=== PATIENT | male | born 1965 | race Two or more races ===

== ENCOUNTER 2017-10-15 09:52 | Inpatient (IN) | payer OTHER ==
[~2017-10-15] VITALS: Ht 167.6 cm; Wt 92.9 kg
[2017-10-15] MEDS ORDERED: SODIUM CHLORIDE 0.9% 500 ML IV ONE (10:25)
[2017-10-15] MEDS ORDERED: CLINDAMYCIN 600MG IV 50 ML IV ONE (10:30)
[2017-10-15] MEDS ORDERED: KETOROLAC TROMETH 30 MG/ML 1ML VIAL IV ONE (10:30)
[2017-10-15 11:05] LABS: Basophils # (auto) 0 uL; Basophils % (auto) 0.6 % (0.0-2.0); Eosinophils # (auto) 0.1 uL; Eosinophils % (auto) 0.8 % (0.0-7.0); Hematocrit 47.8 % (41.0-53.0); Hemoglobin 16.9 g/dL (13.5-17.5); Lymphocytes # (auto) 1.9 uL; Lymphocytes % (auto) 23.9 % (10.0-50.0); Mean Corpuscular Hemoglobin 30.5 pg (28.0-32.0); Mean Corpuscular Hgb Conc. 35.3 g/dL (32.0-36.0); Mean Corpuscular Volume 86.3 fL (80.0-100.0); Monocytes # (auto) 0.6 uL; Monocytes % (auto) 7.7 % (0.0-12.0); Neutrophils # (auto) 5.3 uL; Nucleated Red Blood Cells % 0.1 %; Platelet Count (auto) 233 10^3/uL (140-450); Red Blood Cells 5.53 10^6/uL (4.5-5.90); Red Cell Distribution Width 12.9 % (11.8-14.3)
[2017-10-15 11:38] LABS: Albumin 3.5 g/dL (3.4-5.0); BUN/Creatinine Ratio 9.9; Calcium 8.8 mg/dL (8.5-10.1); Magnesium 2.3 mg/dL (1.6-2.6); Potassium 4.7 mmol/L (3.5-5.1); Total Protein 8.4 g/dL (6.4-8.2)
[2017-10-15] MEDS ORDERED: SILVER SULFADIAZINE 1 % TOPICAL CREAM 50GM TOP ONE (12:00)
[2017-10-15] MEDS ORDERED: LIDOCAINE 2% (LOCAL ANESTH.) PF 5ml SDV ONE ×2 (12:08→12:18)
[2017-10-15] MEDS ORDERED: LIDOCAINE 1% HCL (LOCAL ANESTH.) INJ 20ML MDV ID ONE (12:15)
[2017-10-15] MEDS: HYDROcodone-ACET 10/325MG TAB PO PRN ×3 (12:31→20:02)
[2017-10-15] MEDS ORDERED: LIDOCAINE 2%HCL (LOCAL ANESTH.) INJ 10ml MDV IJ ONE ×2 (12:45)
[2017-10-15] MEDS ORDERED: NITROGLYCERIN 0.4 MG SL TAB SL PRN (13:00)
[2017-10-15] MEDS ORDERED: DEXTROSE (50%) 50ML SYRG IV PRN (13:00)
[2017-10-15] MEDS ORDERED: MORPHINE SULF INJ 2 MG/ML SYRINGE 1ML IV PRN (13:00)
[2017-10-15] MEDS: DAKINS QUARTER STR 0.125% (NaHypochlorite) 473 ML TOPICAL SOL TOP SCH ×2 (13:23→22:00)
[2017-10-15] MEDS: VANCOMYCIN 1GM/250ML 250 ML IV SCH (14:12)
[2017-10-15] MEDS: ACCU-CHEK COMFORT CURVE STRIP VI SCH ×2 (17:21→22:00)
[2017-10-15] MEDS: InsuLIN REG 1unit/0.01ml Soln (100units/ml) SC SCH ×2 (17:49→22:00)
[2017-10-15 19:58] VITALS: BP 142/86
[2017-10-15 22:00] VITALS: BP_SYST 127; BP_DIAS 80; BP_DIAS 84
[2017-10-16] MEDS: VANCOMYCIN 1GM/250ML 250 ML IV SCH ×2 (02:30→16:19)
[2017-10-16 05:39] VITALS: BP 110/70
[2017-10-16] MEDS: ACCU-CHEK COMFORT CURVE STRIP VI SCH ×4 (07:07→21:28)
[2017-10-16] MEDS: InsuLIN REG 1unit/0.01ml Soln (100units/ml) SC SCH ×4 (07:07→21:29)
[2017-10-16 08:48] VITALS: BP 126/80
[2017-10-16] MEDS: HYDROcodone-ACET 10/325MG TAB PO PRN ×3 (09:50→19:47)
[2017-10-16] MEDS: DAKINS QUARTER STR 0.125% (NaHypochlorite) 473 ML TOPICAL SOL TOP SCH ×2 (12:41→21:29)
[2017-10-16 13:00] VITALS: BP 122/77
[2017-10-16 17:00] VITALS: BP 129/84
[2017-10-16 22:00] VITALS: BP 132/81
[2017-10-17] MEDS ORDERED: INSREG3 IV (00:08)
[2017-10-17] MEDS: VANCOMYCIN 1GM/250ML 250 ML IV SCH ×2 (01:39→17:17)
[2017-10-17] MEDS: HYDROcodone-ACET 10/325MG TAB PO PRN ×3 (03:50→23:47)
[2017-10-17 05:00] VITALS: BP 132/74
[2017-10-17] MEDS: InsuLIN REG 1unit/0.01ml Soln (100units/ml) SC SCH ×4 (06:26→22:03)
[2017-10-17] MEDS: ACCU-CHEK COMFORT CURVE STRIP VI SCH ×4 (06:26→22:03)
[2017-10-17 08:30] VITALS: BP 107/73
[2017-10-17] MEDS: DAKINS QUARTER STR 0.125% (NaHypochlorite) 473 ML TOPICAL SOL TOP SCH ×2 (10:06→22:03)
[2017-10-17 13:03] VITALS: BP 115/76
[2017-10-17 16:50] VITALS: BP 117/75
[2017-10-17 22:02] VITALS: BP 132/90
[2017-10-18] MEDS: VANCOMYCIN 1GM/250ML 250 ML IV SCH (04:23)
[2017-10-18 05:45] VITALS: BP 116/73
[2017-10-18 07:40] LABS: Basophils # (auto) 0.1 uL; Basophils % (auto) 0.8 % (0.0-2.0); Eosinophils # (auto) 0.2 uL; Eosinophils % (auto) 2.4 % (0.0-7.0); Hematocrit 45.7 % (41.0-53.0); Hemoglobin 15.7 g/dL (13.5-17.5); Lymphocytes # (auto) 2.5 uL; Lymphocytes % (auto) 27.6 % (10.0-50.0); Mean Corpuscular Hemoglobin 29.8 pg (28.0-32.0); Mean Corpuscular Hgb Conc. 34.3 g/dL (32.0-36.0); Mean Corpuscular Volume 86.8 fL (80.0-100.0); Monocytes # (auto) 0.7 uL; Monocytes % (auto) 7.1 % (0.0-12.0); Neutrophils # (auto) 5.7 uL; Neutrophils % (auto) 62.1 % (37.0-80.0); Platelet Count (auto) 228 10^3/uL (140-450); Red Blood Cells 5.26 10^6/uL (4.5-5.90); Red Cell Distribution Width 12.7 % (11.8-14.3); White Blood Cell 9.1 10^3/uL (4.4-10.8)
[2017-10-18 09:00] VITALS: BP 116/69
[2017-10-18] MEDS ORDERED: HYDR-4072 PO (09:06)
[2017-10-18] MEDS ORDERED: INSREGI SC ×2 (09:06)
== END 2017-10-18 10:20 | disposition short-term general hospital (02) | DRG 603 ==
LOC: ER 09:52 → OVERFLOW 09:53 → EEVIPCON 09:53 → TELE-E-ADS 19:58 → EAST 10-16 22:13
PROVIDERS: ADMIT Internal Medicine; ATTEND Internal Medicine
PROC: 0H9NXZZ Drainage of Left Foot Skin, External Approach (ICD-10-PCS; principal; 2017-10-15)
DX: L03.116 Cellulitis of left lower limb (principal); L02.612 Cutaneous abscess of left foot; E11.9 Type 2 diabetes mellitus without complications; E78.00 Pure hypercholesterolemia, unspecified; A49.02 Methicillin resistant Staphylococcus aureus infection, unspecified site; Z79.4 Long term (current) use of insulin; Z90.49 Acquired absence of other specified parts of digestive tract
CPT/HCPCS: 36415; 73700; 73718; 80053; 80202; 82962; 83605; 83735; 85025; 85652; 87077; 87186; 87205; 94761; 96365; 96366; 96372; 96375; J1815; J1885; J2001; J3490